=== PATIENT | female | born 2000 | race Caucasian/White ===

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

== ENCOUNTER 2019-06-30 12:43 | Emergency (ER) | payer MEDICAID ==
[~2019-06-30] VITALS: Ht 154.9 cm; Wt 67.0 kg
[2019-06-30] MEDS ORDERED: KETOROLAC 30MG/ML VIAL IM ONE (13:30)
[2019-06-30 13:45] VITALS: BP 101/59
== END 2019-06-30 15:43 | disposition home or self-care (01) ==
LOC: ER 13:02
DX: M25.571 Pain in right ankle and joints of right foot (principal); Z91.81 History of falling
CPT/HCPCS: 73610; 73630; 81025; 96372; 99283; J1885; Z7610